=== PATIENT | female | born 1995 | race Caucasian/White ===

== ENCOUNTER 2021-03-24 09:07 | Outpatient (REF) | payer OTHER, SELFPAY ==
[2021-03-25 09:50] LABS: CT PCR NOT DETECTED (Not Detect.); NG PCR NOT DETECTED (Not Detect.)
== END 2021-03-24 09:08 | disposition home or self-care (01) ==
LOC: HO.LAB 09:07
PROVIDERS: PCP Internal Medicine; Visit Provider Advanced Practice Midwife
DX: Z01.411 Encounter for gynecological examination (general) (routine) with abnormal findings (principal); Z11.3 Encounter for screening for infections with a predominantly sexual mode of transmission; Z20.2 Contact with and (suspected) exposure to infections with a predominantly sexual mode of transmission; R30.0 Dysuria; N84.1 Polyp of cervix uteri
CPT/HCPCS: 81003; 87491; 87591; 88142

== ENCOUNTER 2021-04-23 10:01 | Outpatient (REF) | payer OTHER, SELFPAY | END 2021-04-23 10:02 | disposition home or self-care (01) | LOC: HO.LAB 10:01 | PROVIDERS: PCP Internal Medicine; Visit Provider Advanced Practice Midwife | DX: N84.1 Polyp of cervix uteri (principal) | CPT/HCPCS: 58558; 88305 ==

== ENCOUNTER → 2021-05-19 16:01 | Outpatient (BNVA) | payer OTHER, SELFPAY | PROVIDERS: PCP Internal Medicine; Visit Provider Advanced Practice Midwife ==

== ENCOUNTER 2022-05-05 11:02 | Outpatient (REF) | payer OTHER, SELFPAY ==
[2022-05-05 18:11] LABS: CT PCR NOT DETECTED (Not Detect.); NG PCR NOT DETECTED (Not Detect.)
[2022-05-06 10:15] LABS: BV Int Neg Control Negative (Negative); BV Int Pos Control Positive (Positive)
== END 2022-05-05 11:03 | disposition home or self-care (01) ==
LOC: HO.LNP 11:02
PROVIDERS: Visit Provider Advanced Practice Midwife
DX: Z11.4 Encounter for screening for human immunodeficiency virus [HIV] (principal); Z11.3 Encounter for screening for infections with a predominantly sexual mode of transmission
CPT/HCPCS: 87480; 87491; 87510; 87591; 87660

== ENCOUNTER 2022-07-15 16:03 | Outpatient (REF) | payer OTHER, SELFPAY ==
--- NOTE | ~2022-07-15 | US_ITS ---
EXAMINATION: US PELVIS CLINICAL INFORMATION: Excessive and frequent menses; the last menstrual period was on 07/11/2022. COMPARISON: None TECHNIQUE: Ultrasound of the pelvis is performed using both transabdominal and transvaginal transducers along with Doppler. Transvaginal imaging is performed due to inadequate visualization transabdominally. FINDINGS: Uterus: The uterus is anteverted and retroflexed. The uterus measures 8.4 x 4.2 x 5.8 cm. The double wall endometrial thickness is 0.6 mm. The uterus is smooth in contour and has normal myometrial echogenicity. A section scar is noted. No visible fibroid. A 1.5 x 0.9 x 1.3 cm heterogeneous echotexture, smoothly marginated, complex nabothian cyst is seen. There is nonspecific trace free fluid within the endocervical canal. Adnexa: Both ovaries are visualized. There is normal color flow to the adnexa. There is no ovarian torsion. There is no pelvic ascites or fluid collection. Right ovary measures 2.7 x 1.4 x 1.6 cm, volume 3.2 mL. Left ovary measures 6.2 x 3.8 x 4.8 cm, volume 59.2 mL. The left ovary contains a 6.4 x 4.5 x 6.6 cm simple cyst. This shows no septation, mural nodularity or associated color Doppler flow. US/US pelvic and transvaginal IMPRESSION: 1. A 6.6 cm maximal diameter simple left ovarian cyst is seen. Recommend repeat pelvic ultrasound examination in 6-12 months to ensure stability/regression. 2. A 1.5 cm maximal diameter complex nabothian cyst is seen within the cervix. 3. There is nonspecific trace free fluid within the endocervical canal.
== END 2022-07-15 16:04 | disposition home or self-care (01) ==
LOC: HO.US 16:03
PROVIDERS: PCP Internal Medicine; Visit Provider Advanced Practice Midwife
DX: N92.0 Excessive and frequent menstruation with regular cycle (principal)
CPT/HCPCS: 76830; 76856

== ENCOUNTER → 2022-08-25 12:38 | Outpatient (BNVA) | payer OTHER, SELFPAY | PROVIDERS: PCP Internal Medicine; Visit Provider Obstetrics & Gynecology | DX: N83.209 Unspecified ovarian cyst, unspecified side (principal) | CPT/HCPCS: 99212 ==

== ENCOUNTER 2022-10-12 14:40 | Outpatient (REF) | payer OTHER, SELFPAY ==
--- NOTE | ~2022-10-12 | US_ITS ---
EXAMINATION: US PELVIS CLINICAL INFORMATION: Ovarian cyst. COMPARISON: Ultrasound pelvis 07/15/2022. TECHNIQUE: Ultrasound of the pelvis is performed using both transabdominal and transvaginal transducers along with Doppler. Transvaginal imaging is performed due to inadequate visualization transabdominally. FINDINGS: Uterus: The uterus is anteverted and measures 9.0 cm in length, 4.1 mL in AP and 5.8 cm in transverse dimension. The double wall endometrial thickness is 1.1 cm. The uterus is smooth in contour and has normal myometrial echogenicity. No visible fibroid. There is a complex nabothian cysts in the cervix measuring 1.4 x 1.1 x 1.6 cm. Previously it measured 1.5 x 0.9 x 1.3 cm. Adnexa: Both ovaries are visualized. There is normal color flow to the adnexa. There is no ovarian torsion. There is no pelvic ascites or fluid collection. Right ovary measures 2.4 x 1.6 x 1.9 and volume 4.5 mL. No focal lesion seen. Left ovary measures 7.6 x 6.1 x 7.6 cm and volume 184.5 mL. There are 2 cysts visualized; a 6.5 x 5.3 x 7.1 cm cyst, previously measured 6.4 x 4 4.5 x 6.6 cm and a corpus luteal cyst measuring 2.2 x 2.5 x 1.9 cm. US/US pelvic and transvaginal IMPRESSION: Complex nabothian cyst, stable. The uterus is unremarkable. A simple cyst and corpus luteal cyst is seen in left ovary.
== END 2022-10-12 14:41 | disposition home or self-care (01) ==
LOC: HO.US 14:40
PROVIDERS: PCP Internal Medicine; Visit Provider Obstetrics & Gynecology
DX: N83.209 Unspecified ovarian cyst, unspecified side (principal)
CPT/HCPCS: 76830; 76856

== ENCOUNTER 2022-10-26 14:27 | Outpatient (REF) | payer OTHER, SELFPAY ==
[2022-10-27 06:46] LABS: CT PCR NOT DETECTED (Not Detect.); NG PCR NOT DETECTED (Not Detect.)
[2022-10-27 12:36] LABS: BV Int Neg Control Negative (Negative); BV Int Pos Control Positive (Positive)
== END 2022-10-26 14:28 | disposition home or self-care (01) ==
LOC: HO.LAB 14:27
PROVIDERS: PCP Internal Medicine; Visit Provider Advanced Practice Midwife
DX: N83.202 Unspecified ovarian cyst, left side (principal); Z20.2 Contact with and (suspected) exposure to infections with a predominantly sexual mode of transmission; Z71.2 Person consulting for explanation of examination or test findings; Z30.9 Encounter for contraceptive management, unspecified; Z30.012 Encounter for prescription of emergency contraception
CPT/HCPCS: 0353U; 87480; 87510; 87660; 99212

== ENCOUNTER 2022-10-26 15:01 | Outpatient (REF) | payer OTHER, SELFPAY | END 2022-10-26 15:02 | disposition home or self-care (01) | LOC: HO.LNP 15:01 | PROVIDERS: Visit Provider Advanced Practice Midwife | DX: Z13.89 Encounter for screening for other disorder (principal) ==